=== PATIENT | male | born 1965 | race Caucasian/White ===

== ENCOUNTER 2017-03-16 21:50 | Observation (INO) | payer SELFPAY ==
--- NOTE | 2017-03-16 22:03 | C.PDOC ---
History Of Present Illness Patient was brought to the ED by EMS after being found sleeping outside. Patient has strong EtOH on breath and refuses to answer questions at this time. Time Seen by Provider: 03/16/17 22:02 Chief Complaint (Nursing): Altered Mental Status History Per: EMS History/Exam Limitations: intoxication (patient refusing to answer, intoxicated) Onset/Duration Of Symptoms: Hrs Current Symptoms Are (Timing): Still Present Past Medical History Reviewed: Historical Data, Nursing Documentation, Vital Signs Vital Signs: Last Vital Signs Temp 97.7 F 03/17/17 01:29 Pulse 92 H 03/17/17 04:37 Resp 18 03/17/17 04:37 BP 178/72 H 03/17/17 04:37 Pulse Ox 98 03/17/17 04:37 Family History: States: Unknown Family Hx - Social History Hx Alcohol Use: Yes Hx Substance Use: Yes - Immunization History Hx Tetanus Toxoid Vaccination: No (unknown) Hx Influenza Vaccination: No (unknown) Hx Pneumococcal Vaccination: No (unknown) Review Of Systems Constitutional: Negative for: Fever, Chills, Sweats Gastrointestinal: Negative for: Vomiting, Diarrhea Physical Exam - Physical Exam Appears: Non-toxic, No Acute Distress, Other (Strong EtOH on breath ) Skin: Warm, Dry Head: Abrasion (superfical abrasion to left forehead), Other (no septal hematoma ) Ear(s): Bilateral: Normal Lips: Abrasion (superfical abrasion to left upper lip ) Neck: Normal ROM, Supple Cardiovascular: Rhythm Regular Respiratory: No Accessory Muscle Use, No Rales, No Rhonchi, No Stridor, No Wheezing Gastrointestinal/Abdominal: Soft, No Tenderness, No Distention, No Guarding, No Rebound Extremity: Normal ROM, No Tenderness ED Course And Treatment - Laboratory Results Result Diagrams: 03/16/17 22:35 03/16/17 22:35 O2 Sat by Pulse Oximetry: 93 Pulse Ox Interpretation: Normal Reevaluation Time: 05:08 Reassessment Condition: Improved ED OBSERVATION Discharge: Yes Date of observation admission: 03/16/17 Time of observation admission: 22:13 - Goals of Observation Goals of observation are:: Sobriety - Progress Note Progress Note: 03/17/17 00:42 vitals stable, no complaints 03/17/17 02:43 arousable, still refusing to give his name 03/17/17 04:48 gave name and data, wants to go home Disposition Counseled Patient/Family Regarding: Studies Performed, Diagnosis, Need For Followup - Disposition Disposition: HOME/ ROUTINE Disposition Time: 22:02 Condition: FAIR - Clinical Impression Clinical Impression: Alcoholic intoxication - Scribe Statement The provider has reviewed the documentation as recorded by the Scribe April Marr All medical record entries made by the Sanchezibe were at my direction and personally dictated by me. I have reviewed the chart and agree that the record accurately reflects my personal performance of the history, physical exam, medical decision making, and the department course for this patient. I have also personally directed, reviewed, and agree with the discharge instructions and disposition.
[2017-03-16 22:41] LABS: URINE BILIRUBIN NEGATIVE (NEGATIVE); URINE BLOOD 1+ (NEGATIVE); URINE COLOR Colorless (YELLOW); URINE GLUCOSE (UA) NORMAL (Normal); URINE KETONE NEGATIVE (NEGATIVE); URINE LEUKOCYTE ESTERASE NEG Leu/uL (Negative); URINE PROTEIN NEGATIVE (NEGATIVE); URINE UROBILINOGEN NORMAL mg/dL (0.2-1.0)
[2017-03-16 22:41] LABS: BASO % 0.5 % (0.0-2.0); EOS # 0.1 K/uL (0.0-0.7); HEMATOCRIT 46.1 % (35.0-51.0); LYMPH # 2.7 K/uL (1.0-4.3); LYMPH % 51.2 % (20.0-40.0); MEAN CELL VOLUME 90.5 fL (80.0-94.0); MEAN CORPUSCULAR HEMOGLOBIN 30.2 pg (27.0-31.0); MEAN CORPUSCULAR HGB CONC 33.4 g/dL (33.0-37.0); MEAN PLATELET VOLUME 9.1 fL (7.2-11.7); MONO # 0.3 K/uL (0.0-0.8); MONO % 6.1 % (0.0-10.0); NRBC % 0.1 % (0.0-2.0); RED CELL DISTRIBUTION WIDTH 13.3 % (11.5-14.5); WHITE BLOOD COUNT 5.2 K/uL (4.8-10.8)
[2017-03-16 22:49] LABS: CHLORIDE 105 mmol/L (98-107); POTASSIUM 3.9 mmol/L (3.6-5.2); SODIUM 145 mmol/L (132-148)
[2017-03-16 22:51] LABS: ALB/GLOB RATIO 1.3 (1.0-2.1); ALKALINE PHOSPHATASE 104 U/L (38-126); AST/SGOT 54 U/L (17-59); BILIRUBIN,TOTAL 0.2 mg/dL (0.2-1.3); CARBON DIOXIDE 22 mmol/L (22-30); GFR AFRICAN-AMERICAN > 60
[2017-03-16 22:52] LABS: ALT/SGPT 50 U/L (21-72); BLOOD UREA NITROGEN 15 mg/dL (9-20); CALCIUM 7.8 mg/dl (8.6-10.4); GLUCOSE,RANDOM 126 mg/dL (75-110)
[2017-03-16 23:03] LABS: ALCOHOL SERUM 405 mg/dl (0-10)
[2017-03-16 23:29] VITALS: RESP 18
[2017-03-17 01:31] VITALS: TEMP 97.7
[2017-03-17 04:39] VITALS: BP 178/72; PULSE 92
[2017-03-17 05:09] VITALS: O2SAT 93
--- NOTE | 2017-03-17 07:58 | CT ---
PROCEDURE: CT HEAD WITHOUT CONTRAST. HISTORY: Fall. Head injury. COMPARISON: None available. TECHNIQUE: Axial computed tomography images were obtained through the head/brain without intravenous contrast. Radiation dose: Total exam DLP = 1006 mGy-cm. This CT exam was performed using one or more of the following dose reduction techniques: Automated exposure control, adjustment of the mA and/or kV according to patient size, and/or use of iterative reconstruction technique. FINDINGS: HEMORRHAGE: No intracranial hemorrhage. BRAIN: Mild volume loss and white matter disease. No atrophy or chronic microvascular ischemic changes. VENTRICLES: Unremarkable. No hydrocephalus. CALVARIUM: Unremarkable. PARANASAL SINUSES: Mild left maxillary sinus mucosal thickening. MASTOID AIR CELLS: Unremarkable as visualized. No inflammatory changes. OTHER FINDINGS: Superficial soft tissue swelling superior to the left orbit. IMPRESSION: No acute intracranial abnormality. Superficial soft tissue swelling superior to the left orbit. Additional findings as above. These findings were preliminarily reported at 11:12 p.m. on 03/16/[address] Josiah French from [facility]
--- NOTE | 2017-03-17 08:06 | CT ---
PROCEDURE: CT ORBITS WITHOUT CONTRAST. HISTORY: fall COMPARISON: None available. TECHNIQUE: Axial CT images of the orbits were obtained. Coronal and sagittal reformats were generated. Radiation dose: Total exam DLP = 798 mGy-cm. This CT exam was performed using one or more of the following dose reduction techniques: Automated exposure control, adjustment of the mA and/or kV according to patient size, and/or use of iterative reconstruction technique. FINDINGS: RIGHT ORBIT: RIGHT BONY ORBIT: Normal. RIGHT INTRAORBITAL STRUCTURES: Globe: Normal. Extraocular muscles: Normal. Post septal space: Normal. Optic Nerve: Normal. Lacrimal Apparatus: Normal. RIGHT PRESEPTAL SOFT TISSUES: Normal. LEFT ORBIT: LEFT BONY ORBIT: Normal. LEFT INTRAORBITAL STRUCTURES: Globe: Normal. Extraocular muscles: Normal. Post septal space: Normal Optic Nerve: Normal. . Lacrimal Apparatus: Normal. LEFT PRESEPTAL SOFT TISSUES: Superficial soft tissue swelling along the anterior maxilla and superior to the left orbit. OTHER: Nasal septal deviation to the left. Mild mucosal thickening of the left maxillary sinus. Dental mili noted at the anterior left maxilla IMPRESSION: Superficial soft tissue swelling along the anterior maxilla and superior to the left orbit. Additional findings as above. These findings were preliminarily reported at 11:28 p.m. on 03/16/[address] Josiah French from [facility].
== END 2017-03-17 05:44 | disposition home or self-care (01) ==
LOC: C.ER 21:50 → C.9OBSV 22:30
PROVIDERS: ADMIT Emergency Medicine; ATTEND Emergency Medicine
DX: F10.120 Alcohol abuse with intoxication, uncomplicated (principal); Y90.8 Blood alcohol level of 240 mg/100 ml or more
CPT/HCPCS: 70450; 70480; 80053; 81001; 82948; 85025; G0378; G0480